=== PATIENT | female | born 1940 | race Caucasian/White ===

== ENCOUNTER → 2016-12-27 | Outpatient (CLI) | payer OTHER | LOC: US 12:24 | DX: E04.9 Nontoxic goiter, unspecified (principal); R09.89 Other specified symptoms and signs involving the circulatory and respiratory systems; E04.2 Nontoxic multinodular goiter; I65.23 Occlusion and stenosis of bilateral carotid arteries | CPT/HCPCS: 76536; 93880 ==

== ENCOUNTER → 2017-01-31 | Outpatient (CLI) | payer OTHER | LOC: HEART 5 09:55 | DX: I25.10 Atherosclerotic heart disease of native coronary artery without angina pectoris (principal); I48.91 Unspecified atrial fibrillation; I34.0 Nonrheumatic mitral (valve) insufficiency; I35.0 Nonrheumatic aortic (valve) stenosis | CPT/HCPCS: 93306 ==

== ENCOUNTER → 2020-10-08 | Outpatient (CLI) | payer OTHER ==
[~2020-10-08] MED LIST: DILTIAZEM 24HR300 M1 PO; ELIQUIS5 MG PO; GLIPIZIDE5 MG PO; LOPRESSOR 25 MG25 MG PO; OMEPRAZOLE20 M1 PO; STOOL SOFTENER100 M1 PO; VITAMIN B12-FO1 EACH PO; VITAMIN C100 MG PO; VITAMIN D 40400 UNIT PO
[2020-10-08 13:33] LABS: RED BLOOD COUNT 4.27 M/UL (4.00-5.10)
== END ==
LOC: OPSV2 10-06 10:00
PROVIDERS: Obstetrics & Gynecology
DX: Z01.818 Encounter for other preprocedural examination (principal); N81.9 Female genital prolapse, unspecified; R33.9 Retention of urine, unspecified
CPT/HCPCS: 36415; 80048; 81001; 85025; 93005

== ENCOUNTER → 2020-10-08 | Outpatient (CLI) | payer OTHER | LOC: CT 12:12 | DX: R91.8 Other nonspecific abnormal finding of lung field (principal); R91.1 Solitary pulmonary nodule | CPT/HCPCS: 71250 ==

== ENCOUNTER 2020-10-12 07:38 | Observation (INO) | payer OTHER ==
[~2020-10-12] VITALS: Ht 162.6 cm; Wt 56.7 kg
[2020-10-12] MEDS ORDERED: OMEPRAZOLE20 M1 PO (08:37)
[2020-10-12] MEDS ORDERED: ELIQUIS5 MG PO ×2 (08:38→08:39)
[2020-10-12] MEDS ORDERED: GLIPIZIDE5 MG PO (08:38)
[2020-10-12] MEDS ORDERED: LOPRESSOR 25 MG25 MG PO (08:41)
[2020-10-12] MEDS ORDERED: DILTIAZEM 24HR300 M1 PO (08:45)
[2020-10-12] MEDS ORDERED: STOOL SOFTENER100 M1 PO (08:46)
[2020-10-12] MEDS ORDERED: VITAMIN B12-FO1 EACH PO (08:46)
[2020-10-12] MEDS ORDERED: VITAMIN C100 MG PO (08:47)
[2020-10-12] MEDS ORDERED: VITAMIN D 40400 UNIT PO (08:48)
[2020-10-13 06:29] LABS: HEMOGLOBIN 12.7 gm/dl (12.3-15.3)
--- NOTE | 2020-10-13 15:32 | NUR ---
[address] DR FERRER NOTFIED OF PT STILL UNABLE TO VOID ORDERS RECIEVED FOR ST CATTH [address] CATH WITH #14 IN AND POUT CATH 300CC RETURNED TOLERATES WELL NOTED URETHRA SWOLLEN AND REDUPON INSERTION
--- NOTE | 2020-10-13 15:35 | NUR ---
STILL UNABLE TO VOID TAKING PO FLUIDS WELL AND TOLERATES DIET
== END 2020-10-13 18:08 | disposition home or self-care (01) ==
LOC: OR 07:38 → OB 14:10
PROVIDERS: ADMIT Obstetrics & Gynecology
PROC: 0JQC0ZZ Repair Pelvic Region Subcutaneous Tissue and Fascia, Open Approach (ICD-10-PCS; 2020-10-12)
PROC: 0JQC0ZZ Repair Pelvic Region Subcutaneous Tissue and Fascia, Open Approach (ICD-10-PCS; principal; 2020-10-12 09:50)
DX: N81.6 Rectocele (principal); N81.10 Cystocele, unspecified; R33.9 Retention of urine, unspecified; I48.91 Unspecified atrial fibrillation; E11.51 Type 2 diabetes mellitus with diabetic peripheral angiopathy without gangrene; I10 Essential (primary) hypertension; K21.9 Gastro-esophageal reflux disease without esophagitis; I25.10 Atherosclerotic heart disease of native coronary artery without angina pectoris; I25.2 Old myocardial infarction; E78.5 Hyperlipidemia, unspecified; I73.9 Peripheral vascular disease, unspecified; F41.9 Anxiety disorder, unspecified; Z88.2 Allergy status to sulfonamides; Z79.899 Other long term (current) drug therapy; Z20.822 Contact with and (suspected) exposure to COVID-19
CPT/HCPCS: 36415; 82962; 85014; 85018; C1769; G0378; J0690; J1100; J1644; J2001; J2405; J2704; J2765; J3010; J7030; J7050; J7120

== ENCOUNTER → 2021-04-08 | Outpatient (CLI) | payer OTHER | LOC: CT 13:29 | DX: R91.1 Solitary pulmonary nodule (principal) | CPT/HCPCS: 71250 ==

== ENCOUNTER → 2022-05-04 | Outpatient (CLI) | payer OTHER | LOC: HEART 5 10:15 | DX: R00.2 Palpitations (principal) ==